=== PATIENT | female | born 1930 | race Caucasian/White ===

== ENCOUNTER 2016-09-14 11:44 | Emergency (ER) | payer OTHER, BC ==
--- NOTE | 2016-09-14 11:46 | PDOC ---
Attending Attestation - Resident Resident Name: Na Dasilva - ED Attending Attestation I have performed the following: I have examined & evaluated the patient, The case was reviewed & discussed with the resident, I agree w/resident's findings & plan, Exceptions are as noted - HPI HPI: 09/14/16 11:50 The patient is an 86-year-old female with a significant past medical history of right shoulder dislocation previously, who presents to the emergency department because she noticed a "bump" on her right shoulder. She states that she is unsure how long it is been there, but suspects that it has been there for several months. She denies pain. She denies limitation in her range of motion. She denies weight loss, anorexia, weakness/fatigue, or any other symptoms. 09/14/16 12:22 - Physicial Exam PE: 09/14/16 11:50 The patient is well-appearing and in no acute distress Vitals noted There is a soft, mobile density in the right shoulder, consistent with lipoma The patient's son states that he suspects this lesion has been there for several months 09/14/16 12:21 - Medical Decision Making 09/14/16 12:22 She is well-appearing and in no acute distress Clinical impression: Lipoma, chronic We did discuss the need for close outpatient follow-up and imaging with ultrasound, to rule out alternative diagnoses I discussed the physical exam findings, ancillary test results and final diagnoses with the patient. I answered all of the patient's questions. The patient was satisfied with the care received and felt comfortable with the discharge plan and treatment plan. The patient will call their primary care physician within 24 hours to arrange follow-up and will return to the Emergency Department with any new, persistent or worsening symptoms. 09/14/16 12:29 Discharge Disposition - Diagnosis Lipoma - Discharge Dispostion Disposition: HOME Last Admission D/C Date: 10/01/14 - Patient Instructions Printed Discharge Instructions: Lipoma Additional Instructions: The lump on your shoulder is most likely a lipoma, which is a benign collection of fat. It is not dagerous and generally does not require intervention unless it becomes irritated. Please see your primary care doctor to do an ultrasound of the lump to make sure it is not a lymph node. If your doctor is unavailable, you can see Dr Kaur. Please return to ER if severe pain develops or if you cant move your arm or if you develop any other new symptoms. - Post Discharge Activity Work/School Note: Back to Work
[2016-09-14 12:00] VITALS: BP 150/52; PULSE 71; TEMP 98.3; BMI 29.6
--- NOTE | 2016-09-14 12:22 | PDOC ---
History of Present Illness - General Chief Complaint: Bone Injury Stated Complaint: RT SHOULDER LUMP Time Seen by Provider: 09/14/16 11:46 History Source: Patient Exam Limitations: No Limitations - History of Present Illness Initial Comments: 09/14/16 12:01 Patient is a 86 yo F with PMH of anema, basal cell carcinoma, ESRD (on HD NWF) , GERD, HTN, who presents to ED due to a bump on her R shoulder. She noticed it a week and a half ago. It is not painful, she has no ROM limitation in shoulder and no pain. The bump is rubbery, has no erythema, no purulence, no rash. She denies trauma, other lumps, f/c, sob, cough, hemoptysis, sore throat, runny nose. 09/14/16 14:03 09/14/16 14:12 Past History - Past Medical History Allergies/Adverse Reactions: Allergies Allergy/AdvReac Type Severity Reaction Status Date / Time amoxicillin [Amoxicillin] Allergy Mild Rash Verified 09/14/16 11:46 Crab Allergy Mild Facial Uncoded 09/14/16 11:46 Swelling Lobster Allergy Mild Facial Uncoded 09/14/16 11:46 swelling Home Medications: Ambulatory Orders Aspirin [Ecotrin] 81 mg PO DAILY 09/24/14 Carvedilol 25 mg PO BID 09/24/14 Cholecalciferol (Vitamin D3) [Vitamin D] 300 unit PO MOWEFR 09/24/14 Epoetin Juan [Epogen] 2,000 unit IV MOWEFR 09/24/14 Glimepiride 2 mg PO BID 09/24/14 Nitroglycerin Sublingual [Nitrostat -] 0.3 mg SL PRN PRN 09/24/14 Rosuvastatin Calcium [Crestor] 5 mg PO DAILY 09/24/14 Anemia: Yes Cancer: Yes (basal cell on left jewish; excised) Cardiac Disorders: ("blockage") Diabetes: Yes Dialysis: Yes ([place]) GI Disorders: Yes (gerd) Disorders: (mild renal insufficiency) HTN: Yes Hypercholesterolemia: Yes Suicide Attempt (Hx): No - Surgical History Orthopedic Surgery: Yes - Immunization History Immunization Up to Date: Yes - Psycho/Social/Smoking Cessation Hx Anxiety: No Suicidal Ideation: No Smoking Status: No Smoking History: Never smoked Have you smoked in the past 12 months: No Number of Cigarettes Smoked Daily: 0 Cigars Per Day: 0 Information on smoking cessation initiated: No Hx Alcohol Use: No Drug/Substance Use Hx: No Substance Use Type: None Hx Substance Use Treatment: No Review of Systems - Review of Systems Able to Perform ROS?: Yes Is the patient limited Maori proficient: No Constitutional: No: Chills, Fever, Night Sweats HEENTM: No: Nose Congestion, Tinnitus, Throat Swelling, Difficulty Swallowing Respiratory: No: Cough, Orthopnea, Shortness of Breath, Hemoptysis Cardiac (ROS): No: Chest Pain, Edema, Irregular Heart Rate ABD/GI: No: Constipated, Diarrhea, Nausea, Vomiting : No: Dysuria, Flank Pain Musculoskeletal: No: Gout, Joint Pain, Muscle Pain, Muscle Weakness, Joint Stiffness Integumentary: No: Bruising, Erythema, Rash Endocrine: No: Change in Weight Hematologic/Lymphatic: No: Lymph Node Abnormalities All Other Systems: Reviewed and Negative *Physical Exam - Vital Signs Last Vital Signs Temp Pulse Resp BP Pulse Ox 98.3 F 71 20 150/52 98 09/14/16 11:45 09/14/16 11:45 09/14/16 11:45 09/14/16 11:45 09/14/16 11:45 - Physical Exam Comments: 09/14/16 14:09 General: AAOx3 NAD HEENT: PERRLA AOMI Musculoskeletal: No ROM limitation iN R shoulder. No pain with motion, Lump rubbery, nontender. Neuro: CN II-XII grossly intact CV: rrr s1s2 Pulm: cta b/l Medical Decision Making - Medical Decision Making 09/14/16 14:11 Patient presents with clinical picture most consistent with lipoma. No further workup is indicated. She was advised to f/u with PCP for an ultrasound of lump to make sure it is not a lymph node. She and son verbalized understanding. *DC/Admit/Observation/Transfer Diagnosis at time of Disposition: Lipoma - Discharge Dispostion Disposition: HOME Condition at time of disposition: Good Admit: No - Patient Instructions Printed Discharge Instructions: Lipoma Additional Instructions: The lump on your shoulder is most likely a lipoma, which is a benign collection of fat. It is not dagerous and generally does not require intervention unless it becomes irritated. Please see your primary care doctor to do an ultrasound of the lump to make sure it is not a lymph node. If your doctor is unavailable, you can see Dr Kaur. Please return to ER if severe pain develops or if you cant move your arm or if you develop any other new symptoms. - Post Discharge Activity Work/School Note: Back to Work
== END 2016-09-14 12:42 | disposition home or self-care (01) ==
LOC: FER 11:44
DX: D17.79 Benign lipomatous neoplasm of other sites (principal); E78.00 Pure hypercholesterolemia, unspecified; N28.9 Disorder of kidney and ureter, unspecified; Z85.828 Personal history of other malignant neoplasm of skin; Z99.2 Dependence on renal dialysis; E11.22 Type 2 diabetes mellitus with diabetic chronic kidney disease; I12.0 Hypertensive chronic kidney disease with stage 5 chronic kidney disease or end stage renal disease; N18.6 End stage renal disease
CPT/HCPCS: 99282-25

== ENCOUNTER 2017-01-18 13:11 | Emergency (ER) | payer OTHER, BC ==
--- NOTE | 2017-01-18 13:30 | PDOC ---
History of Present Illness - General Chief Complaint: Rash Stated Complaint: rash Time Seen by Provider: 01/18/17 13:18 History Source: Patient Exam Limitations: No Limitations - History of Present Illness Initial Comments: 01/18/17 13:23 86 yo F with anema, basal cell carcinoma, ESRD (MWF) ,GERD,HTN here with c/o rash right lateral neck. started few days ago. had some pain. describes a burning sensation. no f/c no new medications. now has some blistering. describes rash as painful. no change to vision. no oral or ocular involvement. Past History - Past Medical History Allergies/Adverse Reactions: Allergies Allergy/AdvReac Type Severity Reaction Status Date / Time amoxicillin [Amoxicillin] Allergy Mild Rash Verified 01/18/17 13:31 Crab Allergy Mild Facial Uncoded 01/18/17 13:31 Swelling Lobster Allergy Mild Facial Uncoded 01/18/17 13:31 swelling Home Medications: Ambulatory Orders Aspirin [Ecotrin] 81 mg PO DAILY 09/24/14 Epoetin Juan [Epogen] 2,000 unit IV MOWEFR 09/24/14 Glimepiride 2 mg PO BID 09/24/14 Nitroglycerin Sublingual [Nitrostat -] 0.3 mg SL PRN PRN 09/24/14 Carvedilol 6.25 mg PO ASDIR 01/18/17 Folic Acid/Vit Bcomp,C [Dialyvite Tablet] 1 each PO DAILY 01/18/17 Valacyclovir HCl [Valtrex -] 500 mg PO DAILY #7 tablet 01/18/17 Anemia: Yes Cancer: Yes (basal cell on left jewish; excised) Cardiac Disorders: ("blockage") Diabetes: Yes Dialysis: Yes ([place]) GI Disorders: Yes (gerd) Disorders: (mild renal insufficiency) HTN: Yes Hypercholesterolemia: Yes - Surgical History Orthopedic Surgery: Yes - Immunization History Immunization Up to Date: Yes - Suicide/Smoking/Psychosocial Hx Smoking Status: No Smoking History: Never smoked Have you smoked in the past 12 months: No Number of Cigarettes Smoked Daily: 0 Cigars Per Day: 0 Hx Alcohol Use: No Drug/Substance Use Hx: No Substance Use Type: None Hx Substance Use Treatment: No Review of Systems - Review of Systems Constitutional: No: Chills, Diaphoresis, Fever HEENTM: No: Eye Pain, Blurred Vision Musculoskeletal: No: Back Pain, Gout, Joint Pain Integumentary: Yes: Lesions, Rash. No: Bruising Neurological: No: Headache Hematologic/Lymphatic: Yes: Anemia All Other Systems: Reviewed and Negative *Physical Exam - Vital Signs Last Vital Signs Temp Pulse Resp BP Pulse Ox 98.2 F 77 18 153/70 97 01/18/17 13:11 01/18/17 13:11 01/18/17 13:11 01/18/17 13:11 01/18/17 13:11 - Physical Exam General Appearance: Yes: Appropriately Dressed HEENT: positive: Normal ENT Inspection Neck: positive: Trachea midline Respiratory/Chest: positive: Lungs Clear, Normal Breath Sounds. negative: Respiratory Distress Cardiovascular: positive: Regular Rhythm, Regular Rate, S1, S2. negative: Edema , JVD, Murmur Gastrointestinal/Abdominal: positive: Normal Bowel Sounds, Flat, Soft. negative : Tender Extremity: positive: Other (lipoma right shoulder) Integumentary: positive: Dry, Warm, Other (right lateral neck with shingles like rash. erythematous areas with some vesicles, no scabbing.l) Neurologic: positive: Fully Oriented, Alert, Normal Mood/Affect Medical Decision Making - Medical Decision Making 01/18/17 13:26 86 yo F with h/o ESRD ( MWF )_ afib, anemia GERD,HTN here with shingles right lateral neck. will contact pcp. dr marylin morel, and start valtrex tid, tylenol for pain control. 01/18/17 13:49 d/w DR pressley and pharmacy, will adjust valtrex dosing to 500 mg daily x 7 days adjusted for hemodialysis. dr pressley or Dr. Morel will see pt on friday with dialysis. agrees with plan. *DC/Admit/Observation/Transfer Diagnosis at time of Disposition: Shingles - Discharge Dispostion Disposition: HOME Condition at time of disposition: Stable - Prescriptions Prescriptions: Valacyclovir HCl [Valtrex -] 500 mg PO DAILY #7 tablet - Referrals Referrals: Marylin Morel MD [Staff Physician] - - Patient Instructions Printed Discharge Instructions: Shingles (Herpes Zoster) (Alternative Therapy) , Shingles Additional Instructions: you should take VAltrex ( Valcyclovir) 500 mg tablet once daily for 7 days in addition to your other medications. follow up with Marylin Sandoval next friday for dialysis. for the pain you can take tylenol 500 mg every 6 hours as needed. return for fever, change to vision, spreading of rash or any concerns.
[2017-01-18 13:33] VITALS: BP 153/70; PULSE 77; TEMP 98.2; BMI 29.9
[2017-01-18] MEDS ORDERED: valACYclovir HCL 500 MG TABLET (FP) ONE (13:46)
[2017-01-18] MEDS ORDERED: ACETAMINOPHEN 325 MG TABLET (FP) PO ONE (13:48)
[2017-01-18] MEDS ORDERED: valACYclovir HCL 1000 MG TABLET PO ONE (13:48)
[2017-01-18] MEDS ORDERED: ACETAMINOPHEN 325 MG TABLET (FP) ONE (13:49)
== END 2017-01-18 13:55 | disposition home or self-care (01) ==
LOC: FER 13:11
DX: B02.9 Zoster without complications (principal); I12.0 Hypertensive chronic kidney disease with stage 5 chronic kidney disease or end stage renal disease; N18.6 End stage renal disease; Z99.2 Dependence on renal dialysis; K21.9 Gastro-esophageal reflux disease without esophagitis; E78.00 Pure hypercholesterolemia, unspecified
CPT/HCPCS: 99281-25

== ENCOUNTER 2017-02-28 14:20 | Emergency (ER) | payer OTHER, BC ==
[2017-02-28 14:25] VITALS: BP 127/54; PULSE 76; TEMP 98.2; BMI 30.2
--- NOTE | 2017-02-28 14:33 | PDOC ---
History of Present Illness <Pramod Paula - Last Filed: 02/28/17 14:57> - General History Source: Patient Exam Limitations: No Limitations - History of Present Illness Initial Comments: 02/28/17 15:41 The patient is a 86 year old female, accompanied by son, with a significant past medical history of anemia, basal cell carcinoma, ESRD (MWF), GERD and hypertension, who presents to the emergency department for evaluation of a lipoma on the right shoulder. The patient reports that she has been experiencing a clear to yellow discharge from the lipoma and is looking for a wound care follow up referral. The patient denies pain, discomfort or redness from the lipoma. She denies recent fevers, chills, headache or dizziness. She denies recent nausea, vomit, diarrhea or constipation. She denies recent chest pain or shortness of breath. Primary Care Physician: Dr. Alonzo Harding <Alexander Ch - Last Filed: 02/28/17 15:47> - General Chief Complaint: Wound Stated Complaint: right shoulder wound Past History - Past Medical History Anemia: Yes Cancer: Yes (basal cell on left jainism, R nose) Cardiac Disorders: ("blockage") COPD: No Diabetes: Yes Dialysis: Yes ([place],WE,FR) GI Disorders: Yes (gerd) Disorders: (renal insufficiency) HTN: Yes Hypercholesterolemia: Yes - Surgical History Orthopedic Surgery: Yes - Immunization History Immunization Up to Date: Yes - Suicide/Smoking/Psychosocial Hx Smoking Status: No Smoking History: Never smoked Have you smoked in the past 12 months: No Number of Cigarettes Smoked Daily: 0 Cigars Per Day: 0 Hx Alcohol Use: No Drug/Substance Use Hx: No Substance Use Type: None Hx Substance Use Treatment: No <Pramod Paula - Last Filed: 02/28/17 14:57> <Alexander Ch - Last Filed: 02/28/17 15:47> - Past Medical History Allergies/Adverse Reactions: Allergies Allergy/AdvReac Type Severity Reaction Status Date / Time amoxicillin [Amoxicillin] Allergy Mild Rash Verified 02/28/17 14:21 Penicillins Allergy Verified 02/28/17 14:21 Crab Allergy Mild Facial Uncoded 02/28/17 14:21 Swelling Lobster Allergy Mild Facial Uncoded 02/28/17 14:21 swelling shellfish Allergy Uncoded 02/28/17 14:21 Home Medications: Ambulatory Orders Aspirin [Ecotrin] 81 mg PO DAILY 09/24/14 Epoetin Juan [Epogen] 2,000 unit IV MOWEFR 09/24/14 Glimepiride 2 mg PO BID 09/24/14 Nitroglycerin Sublingual [Nitrostat -] 0.4 mg SL PRN PRN 09/24/14 Folic Acid/Vit Bcomp,C [Dialyvite Tablet] 1 each PO DAILY 01/18/17 Atorvastatin Ca [Lipitor] 10 mg PO HS 01/29/17 Carvedilol 6.25 mg PO BID #30 tab 02/06/17 Review of Systems - Review of Systems Comments:: 02/28/17 15:45 ROS: A complete review of 10 out of 10 review of systems is taken and is negative apart from what is previously mentioned below and in the HPI. <Alexander Ch - Last Filed: 02/28/17 15:47> *Physical Exam - Vital Signs Last Vital Signs Temp Pulse Resp BP Pulse Ox 98.2 F 76 18 127/54 96 02/28/17 14:21 02/28/17 14:21 02/28/17 14:21 02/28/17 14:21 02/28/17 14:21 <Pramod Paula - Last Filed: 02/28/17 14:57> - Vital Signs Last Vital Signs Temp Pulse Resp BP Pulse Ox 98.2 F 76 18 127/54 96 02/28/17 14:21 02/28/17 14:21 02/28/17 14:21 02/28/17 14:21 02/28/17 14:21 - Physical Exam Comments: 02/28/17 15:45 Vitals: Triage vital signs reviewed General Appearance: No acute distress, well nourished, well developed Neck: Supple; No nuchal rigidity Chest Wall: Nontender Cardiac: Regular rate and rhythm, no murmurs, no rubs, no gallops Lungs: Clear to auscultation bilateral, good air movement bilaterally Abdomen: Soft, nondistended, normal bowel sounds, nontender to palpation Extremities: Full range of motion to all extremities, no cyanosis, clubbing, or edema Skin: +Lipoma on the right shoulder. Neuro: AOX3; Cranial Nerves 2-12 grossly intact, Strength intact to all extremities, Sensation intact to all extremities, Psych: Normal mood, normal affect <Alexander Ch - Last Filed: 02/28/17 15:47> Medical Decision Making - Medical Decision Making 02/28/17 14:59 We'll appearing no apparent distress history and examination consistent with a lipoma with serosanguineous discharge. There is no erythema there is no warmth the discharge is clearish yellow it is not purulent in nature it has been ongoing for 3 weeks patient is well-appearing I do not suspect this to be an abscess. Patient does not need any additional drainage or packing at this time this is a chronic lipoma with serosanguineous discharge. I have arranged for the patient to follow-up in wound clinic at [facility] on Friday at 9 AM on 5 W. I discussed with patient and family they're to return to the emergency department immediately for any change in size of lipoma any change in discharge any redness any fever or any streaking red lines if patient appears ill or for any concerns Findings, the need for follow-up and strict return instructions discussed with patient. <Pramod Paula - Last Filed: 02/28/17 14:57> *DC/Admit/Observation/Transfer - Discharge Dispostion Admit: No <Pramod Paula - Last Filed: 02/28/17 14:57> - Attestations Scribe Attestion: 02/28/17 15:47 Documentation prepared by Alexander Ch, acting as medical psychotherapist for Pramod Paula MD. <Alexander Ch - Last Filed: 02/28/17 15:47> Diagnosis at time of Disposition: Lipoma Qualifiers: Lipoma location: upper extremity Laterality: right Qualified Code(s): D17.21 - Benign lipomatous neoplasm of skin and subcutaneous tissue of right arm - Discharge Dispostion Condition at time of disposition: Stable - Referrals Referrals: Alonzo Santamaria MD [Primary Care Provider] - - Patient Instructions Additional Instructions: Follow-up on Friday at 9 AM at [facility] 5 W. Arrive 10- 15 minutes early. At the wound clinic. Return to the emergency department immediately for any change in size of the lipoma if he begins to get red and swollen painful if there is a change in the color of discharge if there are any streaking red lines if he develops a fever or for any concerns. - Post Discharge Activity
== END 2017-02-28 15:08 | disposition home or self-care (01) ==
LOC: FER 14:20
DX: D17.21 Benign lipomatous neoplasm of skin and subcutaneous tissue of right arm (principal); D64.9 Anemia, unspecified; E11.22 Type 2 diabetes mellitus with diabetic chronic kidney disease; I12.0 Hypertensive chronic kidney disease with stage 5 chronic kidney disease or end stage renal disease; N18.6 End stage renal disease; Z99.2 Dependence on renal dialysis; E78.00 Pure hypercholesterolemia, unspecified; Z85.828 Personal history of other malignant neoplasm of skin; K21.9 Gastro-esophageal reflux disease without esophagitis
CPT/HCPCS: 99281-25